=== PATIENT | female | born 1970 | race Caucasian/White ===

== ENCOUNTER → 2024-10-22 13:03 | Outpatient (REF) | payer OTHER, SELFPAY | LOC: WDC 13:03 | PROVIDERS: ATTENDING PHYSICIAN Nurse Practitioner Family | DX: Z12.31 Encounter for screening mammogram for malignant neoplasm of breast (principal); Z13.820 Encounter for screening for osteoporosis | CPT/HCPCS: 77063; 77067; 77080 ==

== ENCOUNTER → 2025-08-26 16:06 | Outpatient (REF) | payer BC, SELFPAY | LOC: RAD 16:06 | PROVIDERS: ATTENDING PHYSICIAN Nurse Practitioner Family | DX: R31.9 Hematuria, unspecified (principal); Z87.442 Personal history of urinary calculi | CPT/HCPCS: 74176 ==

== ENCOUNTER 2025-09-15 06:32 | Day surgery (SDC) | payer BC, SELFPAY ==
[2025-09-15 11:13] VITALS: BMI 26.6
[2025-09-15 11:30] VITALS: BP 134/82
[2025-09-15 11:33] VITALS: BMI 26.6
[2025-09-15] MEDS: NORMOSOL-R/PLASMALYTE-A 1000 IV (11:34)
[2025-09-15 11:42] LABS: Hematocrit 44.2 % (37.0-47.0); Hemoglobin 14.6 g/dL (12.0-16.0); Mean Corp Hgb Conc. 33.0 g/dL (33.0-37.0); Mean Corpuscular Volume 85.2 fL (81.0-99.0); Platelet Count 306 10^3/uL (130-400); Red Cell Dist. Width 13.0 % (11.5-14.5)
[2025-09-15 11:56] LABS: ALT (SGPT) 18 U/L (0-35); AST (SGOT) 21 U/L (14-36); Albumin 4.9 g/dl (3.5-5.0); Alkaline Phosphatase 84 U/L (38-126); Blood Urea Nitrogen 19 mg/dl (7-17); Calcium 9.9 mg/dl (8.4-10.2); Carbon Dioxide 31 mmol/L (22-30); Chloride 103 mmol/L (98-107); Estimated Creatinine Clearance 92 ml/min; Glucose 91 mg/dl (70-99); Potassium 4.1 mmol/L (3.5-5.1); Sodium 141 mmol/L (135-145); Total Protein 7.7 g/dl (6.3-8.2); eGFR > 60.00
[2025-09-15 13:19] VITALS: BP 101/61; BP 134/82
[2025-09-15 13:30] VITALS: BP 107/59
[2025-09-15 13:45] VITALS: BP 108/57
[2025-09-15 14:10] VITALS: BP 132/55
[2025-09-15] MEDS: ULTRAM 50 MG PO (14:19)
[2025-09-15 14:35] VITALS: BP 128/61
== END 2025-09-15 14:46 | disposition home or self-care (01) ==
LOC: SDS 06:32
PROVIDERS: ATTENDING PHYSICIAN Specialist
DX: N20.0 Calculus of kidney (principal)
CPT/HCPCS: 52356; 74420; 76000; 80053; 82365; 85027; 93005; C1894

== ENCOUNTER → 2025-09-21 08:46 | Outpatient (REF) | payer BC, SELFPAY | LOC: WDC 08:46 | PROVIDERS: ATTENDING PHYSICIAN Nurse Practitioner Family; REFERRING PHYSICIAN Nurse Practitioner Women's Health | DX: N64.4 Mastodynia (principal) | CPT/HCPCS: 76642; 77062; 77066 ==

== ENCOUNTER → 2025-10-12 07:09 | Outpatient (REF) | payer BC, SELFPAY | LOC: RAD 07:09 | PROVIDERS: ATTENDING PHYSICIAN Nurse Practitioner Family | DX: E04.9 Nontoxic goiter, unspecified (principal) | CPT/HCPCS: 76536 ==